=== PATIENT | female | born 1960 | race Caucasian/White ===

== ENCOUNTER → 2024-02-25 11:15 | Outpatient (REF) | payer BC, SELFPAY | LOC: WDC 11:15 | PROVIDERS: ATTENDING PHYSICIAN Nurse Practitioner Adult Health | DX: Z12.31 Encounter for screening mammogram for malignant neoplasm of breast (principal) | CPT/HCPCS: 77063; 77067 ==

== ENCOUNTER → 2024-06-29 15:30 | Outpatient (REF) | payer BC, SELFPAY | LOC: RAD 15:30 | PROVIDERS: ATTENDING PHYSICIAN Nurse Practitioner Adult Health | DX: R00.2 Palpitations (principal); R06.09 Other forms of dyspnea | CPT/HCPCS: 71046 ==

== ENCOUNTER → 2024-07-25 10:12 | Outpatient (REF) | payer BC, SELFPAY | LOC: RCS 10:12 | PROVIDERS: ATTENDING PHYSICIAN Nurse Practitioner Adult Health | DX: R00.2 Palpitations (principal) | CPT/HCPCS: 93225; 93226 ==

== ENCOUNTER → 2024-09-14 13:55 | Outpatient (REF) | payer BC, SELFPAY | LOC: RCS 13:55 | PROVIDERS: ATTENDING PHYSICIAN Nurse Practitioner Adult Health; FAMILY PHYSICIAN Family Medicine | DX: R06.09 Other forms of dyspnea (principal); R10.12 Left upper quadrant pain | CPT/HCPCS: 93017; 93306 ==

== ENCOUNTER → 2025-09-12 09:57 | Outpatient (REF) | payer BC, SELFPAY | LOC: WDC 09:57 | PROVIDERS: ATTENDING PHYSICIAN Nurse Practitioner Adult Health | DX: N63.21 Unspecified lump in the left breast, upper outer quadrant (principal); N63.12 Unspecified lump in the right breast, upper inner quadrant | CPT/HCPCS: 76642; 77062; 77066 ==